=== PATIENT | male | born 1965 | race Caucasian/White ===

== ENCOUNTER 2024-12-31 18:05 | Emergency (ER) | payer MEDICAID ==
[~2024-12-31] VITALS: Ht 162.6 cm; Wt 76.0 kg
[2024-12-31 18:09] VITALS: BP 148/94; PULSE 83; RESP 18; TEMP 36.8; O2SAT 99
== END 2024-12-31 20:45 | disposition left against medical advice (07) ==
LOC: ER 18:05
DX: Z00.8 Encounter for other general examination (principal); Z53.21 Procedure and treatment not carried out due to patient leaving prior to being seen by health care provider